=== PATIENT | male | born 1945 | race Caucasian/White ===

== ENCOUNTER 2016-08-15 07:53 | Day surgery (SDC) | payer BC ==
--- NOTE | ~2016-08-15 | EGD ---
EGD REPORT [facility] [address] [place]. 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 Estimated blood loss: None. Procedure: Pre-Anesthesia Assessment: - ASA Grade Assessment: III - A patient with severe systemic disease. After obtaining informed consent, the endoscope was passed under direct vision. Throughout the procedure, the patient's blood pressure, pulse, and oxygen saturations were monitored continuously. The GIF [id number] was introduced through the mouth, and advanced to the second part of duodenum. The Endoscope was introduced through the mouth, and advanced to the second part of duodenum. Findings: Endoscopic Finding : The examined esophagus was endoscopically normal. Patchy moderate inflammation characterized by erythema was found in the entire examined stomach. Biopsies were taken with a cold forceps for histology. Verification of patient identification for the specimen was done. Estimated blood loss was minimal. The examined duodenum was endoscopically normal. Endosonographic Finding : A round mass was identified in the uncinate process of the pancreas. The mass was hypoechoic. The mass measured 42 mm by 30 mm in maximal cross-sectional diameter. The endosonographic borders were well-defined. An intact interface was seen between the mass and the portal vein, superior mesenteric vein (The SMV within view appeared clear), splenoportal confluence, celiac trunk and superior mesenteric artery suggesting a lack of invasion. Fine needle aspiration was performed. Color Doppler imaging was utilized prior to needle puncture to confirm a lack of significant vascular structures within the needle path. Ten passes were made with the 22 gauge needle and with the 25 gauge needle using a transduodenal approach. A preliminary cytologic examination was not performed. Final cytology results are pending. The pancreatic duct had a normal endosonographic appearance in the EGD REPORT [address] [address] NAME: RODRI MAZA : [birth year] STATUS : [place] [facility] [place]#: [id number] AGE: 70 ADM/REG DATE : 08/15/16 MR#: [id number] REPORT SERV DATE: 08/15/16 DICTATED BY: GURDEEP BERNAL DATE: 08/15/16 REPORT STATUS : Draft TRANSCRIBED BY: [facility] DATE: 08/15/16 entire pancreas. There was no sign of significant endosonographic abnormality in the common bile duct. No lymphadenopathy seen. There was no sign of significant endosonographic abnormality in the examined duodenum. Endosonographic images of the stomach were unremarkable. There was no sign of significant endosonographic abnormality in the esophagus. Impression: - Normal esophagus. - Gastritis. Biopsied. - Normal examined duodenum. - A mass was identified in the uncinate process of the pancreas. - The pancreatic duct had a normal endosonographic appearance in the entire pancreas. - There was no sign of significant pathology in the common bile duct. - There was no sign of significant pathology in the examined duodenum. - Endosonographic images of the stomach were unremarkable. - There was no sign of significant pathology in the esophagus. Recommendation: - Return to previous diet. - Continue present medications. - Await cytology results and await path results. - Return to referring physician. Procedure Code(s): --- Professional --- 86152, Esophagogastroduodenoscopy, flexible, transoral; with transendoscopic ultrasound-guided intramural or transmural fine needle aspiration/biopsy(s) (includes endoscopic ultrasound examination of the esophagus, stomach, and either the duodenum or a surgically altered stomach where the jejunum is examined distal to the anastomosis) Diagnosis Code(s): --- Professional --- K29.70, Gastritis, unspecified, without bleeding K86.8, Other specified diseases of pancreas CPT copyright 2013 [employer]. All rights reserved. EGD REPORT [facility] [address] [place]. [address] NAME: RODRI MAZA DOBBS : [birth year] STATUS : [place] [facility] [place]#: [id number] AGE: 70 ADM/REG DATE : 08/15/16 MR#: [id number] REPORT SERV DATE: 08/15/16 DICTATED BY: GURDEEP BERNAL DATE: 08/15/16 REPORT STATUS : Draft TRANSCRIBED BY: [employer] DATE: 08/15/16 The codes documented in this report are preliminary and upon induction machine setter review may be revised to meet current compliance requirements. GURDEEP BERNAL, 08/15/2016 9:51 AM Number of Addenda: 0 Note Initiated On: 08/15/2016 9:01 AM Scope Withdrawal Time 0 hours 0 minutes [address] [place] [address]
[~2016-08-15 07:53] MED LIST: ACET500CAP PO; ACTOS30 PO; ADVIL PO; AMBIEN CR12.5 MG PO; AMBIEN CR6.25 MG PO; ASAB PO; AUG500 PO; AVODART PO; BIST PO; CARDCD180 PO; COQ10100 MG OR; DIOVAN HCT320 MG/25 PO; FISH-EPA1000 MG PO; GLUCPH PO; KLOR-CON 1010 MEQ PO; KLOR-CON M1010 MEQ PO; LIPITOR10 PO; MELATONIN1 M1 PO; MIRAPEX0.75 MG PO; PREV15 PO; PROSCAR5 PO; SIN25 PO; TRANDAT300 PO; VESICARE5 PO; VITAMIN D1000 UNI1 PO; WHEY PROTEIN PO; [UNRECOGNIZED DRUG - OTHER] PO
[2016-08-15 08:30] LABS: CALCIUM, SERUM 8.6 MG/DL (8.5-10.4); CHLORIDE, SERUM 99 MMOL/L (96-112); CO2 (CARBON DIOXIDE) 35 MMOL/L (24-34); CREATININE 1.18 MG/DL (0.70-1.30); GFR AFRICAN AMERICAN 71 ML/MIN (>=60); GFR NON AFRICAN AMERICAN 61 ML/MIN (>=60); GLUCOSE, SERUM 155 MG/DL (60-99); POTASSIUM, SERUM 3.4 MMOL/L (3.5-5.3); SODIUM, SERUM 140 MMOL/L (135-148)
[2016-08-15 08:32] LABS: BUN (BLOOD UREA NITROGEN) 18 MG/DL (6-23)
== END 2016-08-15 23:59 | disposition home or self-care (01) ==
LOC: DMU 07:53
PROVIDERS: Anesthesiology; Internal Medicine Gastroenterology
PROC: BD47ZZZ Ultrasonography of Gastrointestinal Tract (ICD-10-PCS; 2016-08-15)
PROC: 0F9G3ZX Drainage of Pancreas, Percutaneous Approach, Diagnostic (ICD-10-PCS; 2016-08-15)
PROC: 0DB68ZX Excision of Stomach, Via Natural or Artificial Opening Endoscopic, Diagnostic (ICD-10-PCS; principal; 2016-08-15 10:00)
DX: K29.50 Unspecified chronic gastritis without bleeding (principal); I10 Essential (primary) hypertension; I47.1 Supraventricular tachycardia; E11.9 Type 2 diabetes mellitus without complications; E78.00 Pure hypercholesterolemia, unspecified; G20 Parkinson's disease; G47.33 Obstructive sleep apnea (adult) (pediatric); G25.0 Essential tremor; M54.9 Dorsalgia, unspecified; R10.30 Lower abdominal pain, unspecified; Z79.82 Long term (current) use of aspirin; Z79.84 Long term (current) use of oral hypoglycemic drugs; Z79.899 Other long term (current) drug therapy; Z98.41 Cataract extraction status, right eye; Z98.42 Cataract extraction status, left eye; Z94.7 Corneal transplant status; Z98.890 Other specified postprocedural states; Z90.49 Acquired absence of other specified parts of digestive tract; Z96.0 Presence of urogenital implants; Z85.46 Personal history of malignant neoplasm of prostate
CPT/HCPCS: 80048; 88173; 88305; 88341; 88342; C1725